=== PATIENT | male | born 1930 | race Caucasian/White ===

== ENCOUNTER 2018-06-21 14:24 | Inpatient (IN) | payer MEDICARE ==
[~2018-06-21] VITALS: Ht 177.8 cm; Wt 79.0 kg
[2018-06-21] MEDS ORDERED: SODIUM CHLORIDE FLUSH 10ML SYR IVF ONE (15:00)
[2018-06-21] MEDS ORDERED: PLEASE ENTER HEIGHT AND WEIGHT MC SCH (15:00)
[2018-06-21] MEDS ORDERED: PLEASE ENTER ALLERGIES MC SCH (15:00)
[2018-06-21 15:39] LABS: BASOPHILS # (AUTO) 0.04 x10^3/uL (0-0.1); BASOPHILS % (AUTO) 0 % (0-1); EOSINOPHILS # (AUTO) 0.53 x10^3/uL (0-0.4); EOSINOPHILS % (AUTO) 5 % (1-7); LYMPHOCYTES # (AUTO) 1.35 x10^3/uL (1-3.4); LYMPHOCYTES % (AUTO) 13 % (22-44); MD NO; MEAN CORPUSCULAR HEMOGLOBIN 33.8 pg (27.5-34.5); MEAN CORPUSCULAR HGB CONC 33.2 g/dL (33.2-36.2); MEAN CORPUSCULAR VOLUME 101.5 fL (81-97); MEAN PLATELET VOLUME 7.5 fL (7.4-10.4); MONOCYTES # (AUTO) 0.57 x10^3/uL (0.2-0.8); MONOCYTES % (AUTO) 6 % (2-9); NEUTROPHILS # (AUTO) 7.56 x10^3/uL (1.8-6.8); NEUTROPHILS % (AUTO) 75 % (42-75); PLATELET COUNT 370 x10^3/uL (130-400); RED BLOOD COUNT 3.38 x10^6/uL (4.38-5.82); RED CELL DISTRIBUTION WIDTH 15.4 % (9.4-14.8)
[2018-06-21 15:47] LABS: ALANINE AMINOTRANSFERASE 11 U/L (12-78); ALBUMIN 2.1 g/dL (3.4-5.0); ANION GAP 2 mmol/L (5-15); CALCIUM 8.8 mg/dL (8.5-10.1); CHLORIDE 101 mmol/L (98-107); CREATININE 0.71 mg/dL (0.7-1.3)
[2018-06-21 15:52] LABS: ALKALINE PHOSPHATASE 138 U/L (45-117); BILIRUBIN,TOTAL 0.3 mg/dL (0.2-1.0); TOTAL PROTEIN 6.9 g/dL (6.4-8.2); TROPONIN I 0.054 ng/mL (0.000-0.045)
[2018-06-21] MEDS ORDERED: CEFTRIAXONE 1,000 MG in SODIUM CHLORIDE 0.9% 50 ML IV ONE (16:00)
[2018-06-21] MEDS ORDERED: AZITHROMYCIN 500 MG in SODIUM CHLORIDE 0.9% 250 ML IV ONE (16:00)
[2018-06-21] MEDS ORDERED: DOXA2TAB9 PO (16:13)
[2018-06-21] MEDS ORDERED: HYDR-3237 PO (16:13)
[2018-06-21] MEDS ORDERED: FURO-93 PO (16:13)
[2018-06-21] MEDS ORDERED: LORA2TAB PO (16:13)
[2018-06-21] MEDS ORDERED: SENN-87 PO (16:13)
[2018-06-21] MEDS ORDERED: OMEP10CA4 PO (16:13)
[2018-06-21] MEDS ORDERED: SPIR25TA5 PO (16:13)
[2018-06-21 16:23] LABS: MICROSCOPIC NOT IND
[2018-06-21] MEDS ORDERED: CEFTRIAXONE PMX 1GM/50ML 0 ML ONE (16:30)
[2018-06-21 16:34] LABS: AMPHETAMINE SCREEN, URINE Negative (Negative); BARBITURATE SCREEN, URINE Negative (Negative); BENZODIAZEPINE SCREEN, URINE Negative (Negative); CANNABINOID SCREEN, URINE Negative (Negative); COCAINE SCREEN, URINE Negative (Negative); METHADONE SCREEN, URINE Negative (Negative); OPIATE SCREEN, URINE Positive (Negative)
[2018-06-21 16:35] LABS: CULTURE INDICATED? NO
[2018-06-21] MEDS ORDERED: ONDANSETRON 2MG/ML, 2ML IVPush PRN (17:00)
[2018-06-21 17:44] VITALS: BP 117/70
[2018-06-22] MEDS: ATROPINE OPHTH SOLN 1%, 2ML BC PRN ×2 (05:08→22:43)
[2018-06-23] MEDS: SODIUM CHLORIDE 0.9% 1,000 ML IV SCH (18:22)
[2018-06-23 21:35] VITALS: BP 124/76
[2018-06-24 07:57] VITALS: BP 126/68
[2018-06-24] MEDS: SODIUM CHLORIDE 0.9% 1,000 ML IV SCH ×2 (08:11→19:55)
[2018-06-24] MEDS ORDERED: CEFTRIAXONE 1,000 MG IM SCH (09:30)
[2018-06-24] MEDS: DOXYCYCLINE 100MG TABLET PO SCH ×2 (10:52→19:54)
[2018-06-24] MEDS: CEFTRIAXONE 1,000 MG in SODIUM CHLORIDE 0.9% 50 ML IVPB SCH (10:52)
[2018-06-24 14:39] VITALS: BP 130/59
[2018-06-24] MEDS: morphine SULFATE 10 MG/ML, 1ML IVPush PRN ×2 (15:00→21:07)
[2018-06-24 20:11] VITALS: BP 150/75
[2018-06-24] MEDS ORDERED: MORPHINE SULFATE 4 MG/ML, 1ML IVPush ONE (23:00)
[2018-06-25 01:58] VITALS: BP 144/73
[2018-06-25] MEDS: GUAIFENESIN/DM 200-20MG, 10ML UDC PO PRN ×4 (03:21→22:16)
[2018-06-25 07:07] VITALS: BP 145/70
[2018-06-25] MEDS: DOXYCYCLINE 100MG TABLET PO SCH ×2 (09:18→20:31)
[2018-06-25] MEDS: morphine SULFATE 10 MG/ML, 1ML IVPush PRN ×3 (09:18→20:31)
[2018-06-25] MEDS: SODIUM CHLORIDE 0.9% 1,000 ML IV SCH ×2 (09:19→22:10)
[2018-06-25] MEDS: CEFTRIAXONE 1,000 MG in SODIUM CHLORIDE 0.9% 50 ML IVPB SCH (11:39)
[2018-06-25 14:30] VITALS: BP 144/72
[2018-06-25 18:36] VITALS: BP 118/72
[2018-06-26] MEDS: morphine SULFATE 10 MG/ML, 1ML IVPush PRN ×4 (02:23→19:56)
[2018-06-26 02:31] VITALS: BP 116/64
[2018-06-26 07:13] VITALS: BP 122/71
[2018-06-26] MEDS: DOXYCYCLINE 100MG TABLET PO SCH ×2 (07:41→22:37)
[2018-06-26] MEDS ORDERED: MORPHINE SULFATE 4 MG/ML, 1ML IVPush PRN (10:00)
[2018-06-26] MEDS: CEFTRIAXONE 1,000 MG in SODIUM CHLORIDE 0.9% 50 ML IVPB SCH (11:05)
[2018-06-26] MEDS: SODIUM CHLORIDE 0.9% 1,000 ML IV SCH (11:05)
[2018-06-26] MEDS: IBUPROFEN 200 MG TABLET PO PRN ×2 (13:00→22:36)
[2018-06-26 14:00] VITALS: BP 106/60
[2018-06-26 18:55] VITALS: BP 117/61
[2018-06-27 00:50] VITALS: BP 135/78
[2018-06-27] MEDS: morphine SULFATE 10 MG/ML, 1ML IVPush PRN ×5 (01:00→22:22)
[2018-06-27] MEDS: SODIUM CHLORIDE 0.9% 1,000 ML IV SCH ×2 (01:03→13:08)
[2018-06-27 07:23] VITALS: BP 121/66
[2018-06-27] MEDS: CEFTRIAXONE 1,000 MG in SODIUM CHLORIDE 0.9% 50 ML IVPB SCH (09:52)
[2018-06-27] MEDS: DOXYCYCLINE 100MG TABLET PO SCH ×2 (09:52→20:28)
[2018-06-27] MEDS: GUAIFENESIN/DM 200-20MG, 10ML UDC PO PRN (13:09)
[2018-06-27 14:30] VITALS: BP 115/60
[2018-06-27] MEDS: IBUPROFEN 200 MG TABLET PO PRN ×2 (16:16→22:22)
[2018-06-27 18:47] VITALS: BP 132/74
[2018-06-28 00:05] VITALS: BP 119/65
[2018-06-28] MEDS: SODIUM CHLORIDE 0.9% 1,000 ML IV SCH (02:02)
[2018-06-28] MEDS: morphine SULFATE 10 MG/ML, 1ML IVPush PRN ×5 (02:37→18:56)
[2018-06-28] MEDS: DOXYCYCLINE 100MG TABLET PO SCH ×2 (08:35→19:24)
[2018-06-28 08:36] VITALS: BP 99/54
[2018-06-28] MEDS: DOCUSATE 100 MG CAPSULE PO SCH (08:45)
[2018-06-28] MEDS: IBUPROFEN 200 MG TABLET PO PRN ×2 (09:45→18:56)
[2018-06-28] MEDS: CEFTRIAXONE 1,000 MG in SODIUM CHLORIDE 0.9% 50 ML IVPB SCH (10:24)
[2018-06-28 13:46] VITALS: BP 128/69
[2018-06-28 19:28] VITALS: BP 127/74
[2018-06-28] MEDS: TIMOLOL OPHTH 0.25%, 5ML OP SCH (20:07)
[2018-06-28] MEDS ORDERED: BETAXOLOL 0.25% EACHEYE SCH (21:00)
[2018-06-28] MEDS: LATANOPROST OPHTH 0.005%, 2.5ML EACHEYE SCH (21:51)
[2018-06-29] MEDS: morphine SULFATE 10 MG/ML, 1ML IVPush PRN ×3 (00:07→14:46)
[2018-06-29 00:45] VITALS: BP 129/73
[2018-06-29] MEDS: IBUPROFEN 200 MG TABLET PO PRN ×2 (00:57→11:10)
[2018-06-29 08:00] VITALS: BP 133/66
[2018-06-29] MEDS ORDERED: BISACODYL 10 MG SUPP PR PRN (09:00)
[2018-06-29] MEDS: CEFTRIAXONE 1,000 MG in SODIUM CHLORIDE 0.9% 50 ML IVPB SCH (09:23)
[2018-06-29] MEDS: DOCUSATE 100 MG CAPSULE PO SCH (09:23)
[2018-06-29] MEDS: DOXYCYCLINE 100MG TABLET PO SCH ×2 (09:23→19:59)
[2018-06-29] MEDS: TIMOLOL OPHTH 0.25%, 5ML OP SCH ×2 (09:23→19:59)
[2018-06-29] MEDS ORDERED: CEFTRIAXONE 1,000 MG in SODIUM CHLORIDE 0.9% 50 ML IVPB ONE (10:00)
[2018-06-29 14:00] VITALS: BP 104/54
[2018-06-29 19:02] VITALS: BP 132/76
[2018-06-29] MEDS: LATANOPROST OPHTH 0.005%, 2.5ML EACHEYE SCH (19:59)
[2018-06-30 01:13] VITALS: BP 139/71
[2018-06-30] MEDS: morphine SULFATE 10 MG/ML, 1ML IVPush PRN ×2 (02:24→22:13)
[2018-06-30] MEDS: IBUPROFEN 200 MG TABLET PO PRN ×3 (05:09→22:15)
[2018-06-30 07:13] VITALS: BP 136/64
[2018-06-30] MEDS: DOXYCYCLINE 100MG TABLET PO SCH (08:32)
[2018-06-30] MEDS: DOCUSATE 100 MG CAPSULE PO SCH (08:32)
[2018-06-30] MEDS: TIMOLOL OPHTH 0.25%, 5ML OP SCH ×2 (08:32→20:56)
[2018-06-30 14:51] VITALS: BP 123/67
[2018-06-30 18:55] VITALS: BP 153/66
[2018-06-30] MEDS: LATANOPROST OPHTH 0.005%, 2.5ML EACHEYE SCH (20:56)
[2018-07-01 01:45] VITALS: BP 118/59
[2018-07-01 07:40] VITALS: BP 135/79
[2018-07-01] MEDS: IBUPROFEN 200 MG TABLET PO PRN ×2 (08:56→20:14)
[2018-07-01] MEDS: DOCUSATE 100 MG CAPSULE PO SCH (08:56)
[2018-07-01] MEDS: TIMOLOL OPHTH 0.25%, 5ML OP SCH ×2 (08:56→20:15)
[2018-07-01] MEDS: morphine SULFATE 10 MG/ML, 1ML IVPush PRN ×2 (08:57→20:14)
[2018-07-01 14:52] VITALS: BP 95/61
[2018-07-01 18:34] VITALS: BP 134/72
[2018-07-01] MEDS: LATANOPROST OPHTH 0.005%, 2.5ML EACHEYE SCH (20:15)
[2018-07-02 01:05] VITALS: BP 126/72
[2018-07-02] MEDS: morphine SULFATE 10 MG/ML, 1ML IVPush PRN (06:14)
[2018-07-02 07:18] VITALS: BP 117/68
[2018-07-02] MEDS: DOCUSATE 100 MG CAPSULE PO SCH (09:28)
[2018-07-02] MEDS: TIMOLOL OPHTH 0.25%, 5ML OP SCH (10:12)
[2018-07-02 13:45] VITALS: BP 104/63
[2018-07-02] MEDS: IBUPROFEN 200 MG TABLET PO PRN (15:41)
== END 2018-07-02 15:56 | disposition hospice, home (50) | DRG 177 ==
LOC: ED 16:05 → EDIP 16:27 → 3NW 17:37 → 3NE 06-30 07:43 → 3NW 06-30 07:44
PROVIDERS: ADMIT Hospitalist; ATTEND Internal Medicine
DX: J69.0 Pneumonitis due to inhalation of food and vomit (principal); G93.41 Metabolic encephalopathy; J96.21 Acute and chronic respiratory failure with hypoxia; E87.1 Hypo-osmolality and hyponatremia; D53.9 Nutritional anemia, unspecified; E11.42 Type 2 diabetes mellitus with diabetic polyneuropathy; I35.0 Nonrheumatic aortic (valve) stenosis; I50.9 Heart failure, unspecified; I80.3 Phlebitis and thrombophlebitis of lower extremities, unspecified; J44.9 Chronic obstructive pulmonary disease, unspecified; K21.9 Gastro-esophageal reflux disease without esophagitis; L40.9 Psoriasis, unspecified; T38.0X5A Adverse effect of glucocorticoids and synthetic analogues, initial encounter; Y92.89 Other specified places as the place of occurrence of the external cause; Z51.5 Encounter for palliative care; Z66 Do not resuscitate; Z79.52 Long term (current) use of systemic steroids; Z86.73 Personal history of transient ischemic attack (TIA), and cerebral infarction without residual deficits; Z87.891 Personal history of nicotine dependence; Z99.81 Dependence on supplemental oxygen
CPT/HCPCS: 36415; 70450; 71045; 74177; 80053; 80307; 81003; 83605; 83880; 84145; 84484; 85025; 87040; 93005; 93970; 99285; G0378; J0696; J2270; J7030

== ENCOUNTER 2018-11-26 17:22 | Inpatient (IN) | payer MEDICARE ==
[~2018-11-26] VITALS: Ht 165.1 cm; Wt 73.3 kg
[~2018-11-26 17:22] MED LIST: CEFD300C37 PO; DIGO125T PO; DOXA1TAB2 PO; DOXA2TAB9 PO; DOXY100T PO; DOXYCLINE; FURO-93 PO; HYDR-3237 PO; LORA-445 PO; LORA2TAB PO; METO25TA35 PO; MORPHINE; OMEP10CA4 PO; PIPE3.373 IV; SENN-88 PO; SPIR25TA5 PO; [UNRECOGNIZED DRUG - OTHER] OP
--- NOTE | 2018-11-26 18:00 | NUR ---
TASK RN: PT BIB [facility] W/ CO ALOC. PT LAYING IN GURNEY W/ EYES CLOSED. RESPIRATIONS RAPID, 30'S AND EVEN. SPO2 >90% ON 10L BY NRB. PER NAVEEN, PT W/ HX OF COPD REQUIRING O2 AT BASELINE 6-8L BY NC. O2 DELIVERY CHANGED TO NC, 8L. SPO2 REMAINS >90. PT WILL NOT OPEN EYES WHEN ASKED OR LIFT ARMS BUT NODS HEAD 'YES' OR 'NO' TO QUESTIONING. SON AT WHO REPORTS, "HE LIVES WITH ME AND WHEN I GOT UP THIS MORNING HE WASN'T UP, WHICH I THOUGHT WAS WEIRD. WHEN I CHECKED ON HIM HIS BREATHING SEEMED OFF AND HE WAS DIFFICULTY TO WAKE UP". NAVEEN REPORTS RECENT DC FROM [facility] FOR PNEUMONIA AND PAST HX OF ATIVAN OD IN ATTEMPT TO HARM SELF. "HE'S BEEN BUILDING A STASH OF HIS MEDS AGAIN". BP/SPO2/ECG MONITORING IN PLACE, NSR ON MONITOR. AIRWAY PATENT; PT MANAGING OWN SECRETIONS. EXTREMITIES COOL, ADDITIONAL BLANKETS PROVIDED TO WARM. FSBS 128. NAVEEN DENIES RECENT FEVER/N/V/D/CP/SOB/FALLS; +COUGH. ERP AT BEDSIDE FOR INITIAL ASSESSMENT.
--- NOTE | 2018-11-26 18:49 | NUR ---
IV PLACED, BLOOD DRAWN. POC RV'WD WITH GRANDSON.
[2018-11-26 19:01] LABS: BASOPHILS # (AUTO) 0.03 x10^3/uL (0-0.1); BASOPHILS % (AUTO) 0 % (0-1); EOSINOPHILS # (AUTO) 0.19 x10^3/uL (0-0.4); EOSINOPHILS % (AUTO) 2 % (1-7); LYMPHOCYTES # (AUTO) 0.58 x10^3/uL (1-3.4); LYMPHOCYTES % (AUTO) 6 % (22-44); MD NO; MEAN CORPUSCULAR HGB CONC 32.2 g/dL (33.2-36.2); MEAN CORPUSCULAR VOLUME 96.3 fL (81-97); MEAN PLATELET VOLUME 8.8 fL (7.4-10.4); MONOCYTES # (AUTO) 0.68 x10^3/uL (0.2-0.8); MONOCYTES % (AUTO) 7 % (2-9); NEUTROPHILS # (AUTO) 8.55 x10^3/uL (1.8-6.8); NEUTROPHILS % (AUTO) 85 % (42-75); PLATELET COUNT 145 x10^3/uL (130-400); RED BLOOD COUNT 3.11 x10^6/uL (4.38-5.82); RED CELL DISTRIBUTION WIDTH 14.2 % (9.4-14.8)
[2018-11-26 19:07] LABS: ALANINE AMINOTRANSFERASE 28 U/L (12-78); ALBUMIN 2.1 g/dL (3.4-5.0); ANION GAP 4 mmol/L (5-15); CALCIUM 8.7 mg/dL (8.5-10.1); CHLORIDE 96 mmol/L (98-107); CREATININE 0.79 mg/dL (0.7-1.3)
[2018-11-26 19:11] LABS: ALKALINE PHOSPHATASE 215 U/L (45-117); BILIRUBIN,TOTAL 0.5 mg/dL (0.2-1.0); TOTAL PROTEIN 7.1 g/dL (6.4-8.2); TROPONIN I 0.066 ng/mL (0.000-0.045)
[2018-11-26] MEDS ORDERED: CEFTRIAXONE PMX 1GM/50ML 50 ML ONE (20:27)
[2018-11-26] MEDS ORDERED: AZITHROMYCIN 500 MG in SODIUM CHLORIDE 0.9% 250 ML IV ONE (20:30)
[2018-11-26] MEDS ORDERED: CEFTRIAXONE PMX 1GM/50ML 50 ML IV ONE (20:30)
--- NOTE | 2018-11-26 20:40 | NUR ---
IVF AND ABX STARTED. REPORTED TO NITZA ON 3RD FLOOR.
--- NOTE | 2018-11-26 20:50 | NUR ---
HOSPITALIST AT BS.
[2018-11-26] MEDS ORDERED: SODIUM CHLORIDE 0.9% 1,000ML IVBOLUS ONE (21:00)
[2018-11-26] MEDS ORDERED: ONDANSETRON 2MG/ML, 2ML IVPush PRN (21:30)
[2018-11-26] MEDS ORDERED: ACETAMINOPHEN 325 MG TABLET PO PRN (21:30)
--- NOTE | 2018-11-26 21:35 | NUR ---
PT INCONTINENT OF URINE. HYGIENE PROVIDED AND LINEN CHANGE DONE. PRESSURE ULCER NOTED TO PT'S SACRUM. REPORTED TO RN ON 3RD FLOOR. PT BEING TRANSPORTED UPSTAIRS NOW.
[2018-11-26 21:53] VITALS: BP 108/61
[2018-11-26] MEDS: SODIUM CHLORIDE 0.9% 1,000 ML IV SCH (23:18)
[2018-11-27 00:27] VITALS: BP 104/55
[2018-11-27 01:49] VITALS: BP 108/61
[2018-11-27] MEDS ORDERED: VANCOMYCIN PER PHARMACY MC PRN (03:00)
[2018-11-27] MEDS ORDERED: PHARMACY INSTRUCTION MC SCH (03:00)
[2018-11-27] MEDS ORDERED: LEVOFLOXACIN/PMX 750MG/150ML 150 ML IV SCH (03:00)
[2018-11-27] MEDS ORDERED: PHARMACOKINETIC MONITORING MC PRN (03:30)
[2018-11-27] MEDS ORDERED: VANCOMYCIN 1,500 MG in SODIUM CHLORIDE 0.9% 250 ML IV SCH (04:00)
[2018-11-27 07:47] VITALS: BP 96/58
[2018-11-27] MEDS: PIPERACILLIN/TAZO/PMX 3.375GM 50 ML IV SCH ×2 (11:34→17:36)
[2018-11-27 12:59] VITALS: BP 90/54
[2018-11-27] MEDS ORDERED: ALBUTEROL SULFATE 2.5 MG/3 ML NPPB PRN (17:00)
[2018-11-27] MEDS: SODIUM CHLORIDE 0.9% 1,000 ML IV SCH (17:36)
[2018-11-27 20:25] VITALS: BP 93/55
== END 2018-11-28 07:11 | disposition expired | DRG 917 ==
LOC: ED 20:29 → EDIP 20:30 → SUATTDRO 20:39 → 3NE 21:35
PROVIDERS: ADMIT Hospitalist; ATTEND Hospitalist
DX: T65.92XA Toxic effect of unspecified substance, intentional self-harm, initial encounter (principal); G92 Toxic encephalopathy; J18.1 Lobar pneumonia, unspecified organism; I21.4 Non-ST elevation (NSTEMI) myocardial infarction; J96.21 Acute and chronic respiratory failure with hypoxia; E43 Unspecified severe protein-calorie malnutrition; J44.0 Chronic obstructive pulmonary disease with (acute) lower respiratory infection; E87.3 Alkalosis; Y92.89 Other specified places as the place of occurrence of the external cause; I35.0 Nonrheumatic aortic (valve) stenosis; E11.42 Type 2 diabetes mellitus with diabetic polyneuropathy; D64.9 Anemia, unspecified; I50.9 Heart failure, unspecified; K21.9 Gastro-esophageal reflux disease without esophagitis; R62.7 Adult failure to thrive; Z51.5 Encounter for palliative care; Z66 Do not resuscitate; Z86.73 Personal history of transient ischemic attack (TIA), and cerebral infarction without residual deficits; Z87.891 Personal history of nicotine dependence; Z99.81 Dependence on supplemental oxygen
CPT/HCPCS: 36415; 36600; 70450; 71045; 80053; 82803; 82962; 83605; 83880; 84484; 85025; 87040; 93005; 96365; G0378; J0456; J0696; J1956; J2543; J3370; J7030; J7050